=== PATIENT | female | born 1965 | race Caucasian/White ===

== ENCOUNTER 2021-10-09 08:08 | Outpatient (RCR) | payer BC, SELFPAY ==
[2021-10-09 08:49] LABS: Basophils Absolute Auto 0.02 K/uL (0.00-0.30); Basophils Percent Auto 0.4 % (0.0-3.0); Eosinophils Percent Auto 8.3 % (0.0-7.0); Hematocrit 43.8 % (33.0-51.0); Hemoglobin* 14.4 gm/dL (12.0-16.0); Lymphocytes Absolute Auto 1.14 K/uL (0.90-2.90); Lymphocytes Percent Auto 23.7 % (20-44); Mean Corpuscular HGB Conc 33 gm/dL (32-36); Mean Corpuscular Hemoglobin 31 pg (26-34); Mean Corpuscular Volume 93 fL (80-100); Monocytes Percent Auto 8.7 % (0.0-11.0); Neutrophils Absolute Auto 2.83 K/uL (1.7-7.0); Neutrophils Percent Auto 58.9 % (42.0-72.0); Platelet Count* 238 K/uL (140-440); Red Blood Count 4.71 m/uL (4.00-5.20); White Blood Count* 4.81 K/uL (4.50-11.00)
[2021-10-09 08:51] LABS: Slide Review Reflex No
[2021-10-09 09:13] LABS: Iron* 135 ug/dL (37-170)
[2021-10-09 09:22] LABS: Percent Iron Saturation 44 % (20-50); Total Iron Binding Capacity 309 ug/dL (265-497)
== END 2022-04-07 23:59 | disposition home or self-care (01) ==
LOC: CCIC 08:08
PROVIDERS: PCP Family Medicine; Visit Provider Internal Medicine Hematology & Oncology
DX: D50.9 Iron deficiency anemia, unspecified (principal)
CPT/HCPCS: 36415; 83540; 83550; 85025; 99212; 99213

== ENCOUNTER 2023-03-17 08:32 | Emergency (ER) | payer BC, SELFPAY ==
[2023-03-17 08:38] VITALS: BP 142/83; PULSE 92; RESP 18; TEMP 36.2; O2SAT 95
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
--- NOTE | 2023-03-17 08:56 | CRLHL7_ITS ---
For Patients: As a result of the Cures Act, medical imaging exams and procedure reports are released immediately into your electronic medical record. You may view this report before your referring provider. If you have questions, please contact your health care provider. INDICATION: Fall, right rib pain COMPARISON: 06/27/2020 TECHNIQUE: x views right ribs. FINDINGS: Healing nondisplaced right 8th anterolateral rib fracture. No other fracture definitely seen. Other osseous structures in the field of view appear normal. Normal bone mineralization. No focal bone lesion. The lungs are well expanded and clear. No pneumothorax or pleural effusion seen. Surgical clips right upper quadrant. IMPRESSION: Healing nondisplaced right anterolateral 8th rib fracture. Dictated by Capri Almanza MD @ 03/17/2023 9:36:30 AM (Electronically Signed)
--- NOTE | 2023-03-17 08:57 | CRLHL7_ITS ---
For Patients: As a result of the Century Cures Act, medical imaging exams and procedure reports are released immediately into your electronic medical record. You may view this report before your referring provider. If you have questions, please contact your health care provider. INDICATION: Injury COMPARISON: None TECHNIQUE: CT examination of the head was performed as axial sections without intravenous contrast. Images were obtained from the vertex of the skull through the skull base. Please note that all CT scans at this facility use dose modulation, iterative reconstruction, and/or weight-based dosing when appropriate to reduce radiation dose to as low as reasonably achievable. FINDINGS: The brain shows no sign of mass lesion, mass effect, hemorrhage, or edema. The ventricles and sulci are normal in appearance for the patient`s age. The visualized portions of the orbits are normal in appearance. The osseous structures are normal in their appearance with no sign of abnormality in the skull base or calvarium. IMPRESSION: No acute intracranial posttraumatic findings Please note that all CT scans at this facility use dose modulation, iterative reconstruction, and/or weight-based dosing when appropriate to reduce radiation dose to as low as reasonably achievable. Dictated by Jag Cast MD @ 03/17/2023 9:18:59 AM (Electronically Signed)
== END 2023-03-17 10:23 | disposition home or self-care (01) ==
PROVIDERS: Emergency Provider Family Medicine; PCP Family Medicine
DX: S06.0X0A Concussion without loss of consciousness, initial encounter (principal); S20.219A Contusion of unspecified front wall of thorax, initial encounter; W17.89XA Other fall from one level to another, initial encounter
CPT/HCPCS: 70450; 71101; 99284

== ENCOUNTER 2023-06-06 11:15 | Outpatient (RCR) | payer BC, SELFPAY ==
--- NOTE | 2023-04-13 14:42 | PT.OPEX ---
PT [facility]udd Outpatient Eval PT [facility] Outpatient Eval Start: 04/13/23 10:10 Freq: Status: Active Protocol: Document 04/13/23 10:10 [place] (Rec: 04/13/23 14:42 [facility] [id number]) E-signed By Rochelle Roth PT Physical Therapy Outpatient Evaluation Insurance Information Insurance Name [employer] Subjective Subjective PATIENT DESCRIBES FALLING AT WORK (03/16/23) FROM SCAFFOLD HITTING THE BACK OF HER HEAD W /O LOSS OF CONSCIOUSNESS. SHE DOES NOT REMEMBER THE EXACT FALL AND KNOWS THAT HER PANTS CAUGHT ON SOMETHING SHE FELL WHICH DECREASED THE FORCE THAT HER HEAD STRUCK THE GROUND. INITIALLY, SHE EXPERIENCED NAUSEA, VERTIGO, SOB, NECK PAIN AND C/O ONGOING SENSITIVITY TO LIGHT, LOUD NOISES ALONG WITH STRAIN OF HER EYES TRYING TO CONCENTRATE ON THE COMPUTER SCREEN AND TV SCREEN, HEADACHE, AND BRAIN FOG. SHE HAS BEEN WORKING HER SPIROMETER FOR IMPROVED LUNG CAPACITY AND FEELS HER PNA IS TRYING TO COME BACK. AGGRAVATING FACTORS: FLORESCENT LIGHT, LOUD NOISES, MULTIPLE STIMULI TO PROCESS, QUICK HORIZONTAL HEAD MVMT, DRIVING ALLEVIATING FACTORS: REST, STOPPING ACTIVITY, TYLENOL/ IBUPROFEN Pain Comments 06/07 POSTERIOR CRANIUM Date of Last Physician Visit 03/22/23 Current Work Status Light Duty Occupation [employer] EM[employer]OY[employer] Preferred Name HOLA Precautions Treatment Precautions/Contraindications XRAYS REVEALED FRACTURE RIB ON RIGHT Objective Other/Pertinent Objective OBJECTIVE Cervical AROM: CERVICAL ROTATION R -25%, L-25 % CERVICAL EXT -50% CERVICAL FLEX -25% [employer] test Modified vertebral artery test : (-) Coordination testing (finger to nose): OVERSHOOT RIGHT FINGER Cover-Uncover eye test:(_) H-test: *if positive positive for [employer] lesion: LEFT EYE LAG MOVING LEFT TO RIGHT, SQUINT WHEN IN HIGH R/L H Saccades: LEFT EYE LAG MOVING LEFT TO RIGHT Head thrust test (for VOR and prolonged episodes of vertigo/ dizziness): LEFT EYE LAG OTHERWISE UNREMARKABLE Gait and Balance: Gait:DELIBERATE BUT NOT UNSTEADY Modified CTSIB- Clinical Test of Sensory Interaction and Balance - need 30 seconds Romberg eyes open firm surface : 30 Romberg eyes closed firm surface: 30 Romberg eyes open foam surface : NT Romberg eyes closed foam surface:NT Single leg stance e/o: NT Neuro/Tone/Sensation/Reflexes Sensation: WNL Kika Hallpike (post canal): UNREMARKABLE Horizontal roll test ( horizontal canal): UNREMARKABLE VOR cancellation standing firm surface: (+) OBJECTIVE MEASURE Functional Test Performed and Score Dizziness Handicap Index DHI: 70 (SEVERE HANDICAP) Assessment Assessment/Impression PATIENT IS [address] HEATH FELIX TO EVAL AND TX CONCUSSION W/O LOC, NECK PAIN, AND RIGHT CHEST RIB FX; PMHX INCLUDES BUT LIMITED TO RECENT PNA, BILATERAL PE, ANEMIA. 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 SHE HAS RESIDUAL TENDERNESS ABOUT THE POSTERIOR CRANIUM WITH DECREASED CERVICAL ROM, C /O PHOTOPHOBIA, VERTIGO, SENSITIVITY TO NOISE, SLEEP DISTURBANCE, HYPERSENSITIVITY TO A FEAR OF FALLING, AND AMNESIA REGARDING THE DETAILS OF THE ACTUAL FALL. FROM THE ASSESSMENT, SHE HAS A CONSISTENT LEFT EYE LAG WHEN TRACKING, DURING SACCADES, AND VOR TESTING THAT MAY HAVE EXISTED PRIOR TO THE FALL. SHE DEMONSTRATED DIZZINESS WITH HEAD ROTATION FROM RIGHT TO LEFT DURING THE TESTING BUT NEGATIVE FOR BPPV. PATIENT HAS SIGNIFICANT CERVICAL PARASPINAL TIGHTNESS AND HYPERTONICITY SPECIFICALLY SPLENIUS CAPITIS AND LEVATOR SCAP WHICH ARE CONSISTENT WITH CERVICOGENIC HEADACHES RELATED TO THE TRAUMA OF THE FALL. SHE HAS SIGNS AND SYMPTOMS CONSISTENT WITH POST CONCUSSION SYNDROME, NECK STRAIN, AND SENSORY DISORGANIZATION. SHE WAS UNABLE TO RELAX ENOUGH TO ASSESS THE ARTHROKINEMATICS OF THE CERVICAL FACETS AND GENERAL MOBILITY BUT RESPONDED WELL TO SOR. SHE WOULD BENEFIT FROM SKILLED PHYSICAL THERAPY TO ADDRESS THE PROBLEM LIST ABOVE AND PROVIDED HER INITIAL HEP TODAY FOR CERVICAL ROM AND VOR TRAINING. SHE VERBALIZED UNDERSTANDING OF ALL SKILLED INSTRUCTIONS AND AGREEABLE TO POC AND FREQ. Primary Functional Limitations DIZZINESS SENSORY DISORGANIZATION HEADACHE NECK PAIN REACHING LIFTING Plan of Care Rehabilitation Potential Good Physical Therapy Goals 1. PATIENT WILL BE EDUCATED ON POSTURE, BODY MECHANICS AND THE IMPORTANCE OF EA IN THE NEXT 2-3 WEEKS IN ORDER TO DECREASE STRESS TO THE JOINT/ MM AND TO DECREASE HER SYMPTOMS. 2. PATIENT WILL REPORT RESOLUTION OF DIZZINESS WITH ALL HEAD MVMTS AND POSITIONAL CHANGES FOR >5 CONSECUTIVE DAYS TO IMPROVE SAFETY DURING DAILY/ WORK ACTIVITIES. 3. PATIENT WILL DECREASE HER PAIN IN THE NEXT 4-6 WEEKS WE PROGRESS HER PHYSICAL THERAPY WELL DURING DAILY ACTIVITIES. 4. PATIENT WILL REPORT IMPROVEMENT FROM 70 TO 50 ON THE DIZZINESS HANDICAP INVENTORY QUESTIONNAIRE TO SIGNIFICANTLY IMPROVE TOLERANCE TO ADL'S/WORK/LEISURE ACTIVITIES. 5. PATIENT WILL BE INDEPENDENT WITH HER HEP WITHIN 6-8 WEEKS FOR PROGRESSION OF THE ABOVE GOALS, ONGOING SELF MGMT OF PAIN/SX, ONGOING, SELF IMPROVEMENTS IN ROM, POSTURE, AND RETURN TO BASELINE WITH DAILY ACTIVITIES, PEER/FAMILY CENTERED ACTIVITIES WITHOUT FLARE UPS OF SYMPTOMS/PAIN. Coordination/Communication With Referral Source,Employer Treatment Plan/Direct Interventions Electrical Stimulation,Heat, Ice/Cold/Vasopneumatic,Joint Mobilization,Manual Therapy, Neuromuscular Re-ed,Self-Care/ Home Management,Therapeutic Activities,Therapeutic Exercises Frequency/Duration 1W8 Patient Will Be Discharged From Therapy Completion of LTG(s), Independently Progressing Evaluation Billing Untimed Code Treatment Minutes 20 PT Eval No Charge No Complexity Moderate Certification Information Physician Comment/Change : Physician NPI Number #
== END 2023-10-04 23:59 | disposition home or self-care (01) ==
PROVIDERS: PCP Family Medicine; Visit Provider Student in an Organized Health Care Education/Training Program
DX: S06.0X0A Concussion without loss of consciousness, initial encounter (principal); S22.31XA Fracture of one rib, right side, initial encounter for closed fracture; Z51.89 Encounter for other specified aftercare
CPT/HCPCS: 97110; 97140; 97162

== ENCOUNTER 2024-12-25 18:17 | Emergency (ER) | payer BC, SELFPAY ==
--- OUTSIDE RECORDS SUMMARY | 2024-12-25 18:19 | XMS_ITS | Data Portability ---
Author Organization [facility] Address [address] [place] [address] Assessment No assessment recorded. Plan of Treatment Reminders Order Date Submit Date Provider Last Modified By Organization Details Last Modified Time Details Appointments None record ed. Lab None record ed. Referral None record ed. Procedures None record ed. Surgeries None record ed. Imaging None record ed. Medication Orders None record ed. Patient TargetsNo targets recorded. Patient Instructions Encounter Date Encounter Id Patient Instructions Last Modified By Organization Details Last Modified Time 06/27/2023 [id number] Patient was instructed on best sleeping positions and to avoid sleeping on stomach. Use ice as necessary. [email or web address] Not available 06/27/2023 23:58:16 Reason for Referral None Reported. Procedures Surgical History Date Name Laterality Status Provider Name and Address Organization Details Recorded Time 4 69579: New patient E/M completed [facility] [place] [address], [place], [address], [facility] 06/27/2023 23:56:35 4 46628: Spinal manipulation , 1 to 2 regions completed NO [place], [place] [address], [place], [address], [facility] [employer] [facility] 06/27/2023 23:56:15 Imaging Results None recorded. Procedure Notes None recorded. Medical Equipment None Reported. Medications Name Sig Start Date Stop Date Status Note LastModified by Organization Details LastModified Time meclizine 12.5 mg tablet TAKE 1 TABLET (12.5 MG) BY MOUTH 3 TIMES DAILY IF NEEDED FOR VERTIGO OR NAUSEA/VOM ITING. active Not Available Not Available No t Available doxycycline hyclate 100 mg tablet TAKE 1 TABLET (100 MG) BY MOUTH TWO TIMES DAILY FOR 5 DAYS. IF YOU CONTINUE TO HAVE CHILLS OR SHORTNESS OF BREATH, CONTINUE FOR 5 MORE DAYS active Not Available Not Available No t Available Vitals None Recorded Social History None recorded. Functional Status None recorded. Mental Status None recorded. Family History Nothing Reported. Medical History No medical history recorded. Gynecological HistoryNo gynecological history recorded. Obstetrics History GPAL:G 0 P 0 0 0 0 Past Encounters Encounter ID Performer Location Encounter Start Date Encounter Closed Date Diagnosis/Indication Diagnosis SNOMED-CT Code Diagnosis ICD10 Code Diagnosis IMO Codes Diagnosis Note [id number], [place] IPN - [place] [address] [place] [id number] 06/27/2023 17:06:34 06/28/2023 00:00:23 Cervical segmental dysfunction 464471198 M99.01 Thoracic s egmental dysfunction 262753196 M99.02 Cervicogenic headache 27 7030693 G44.86 Neck pain 03032908 M54.2 Health Concerns Section Related Observation LastModified by Organization Detai ls LastModified Time None Recorded Concern Status LastModified by Organization Details LastModified Time None Recorded Advance Directives Directive None Recorded Payers Insurance Date Sequence Insurance Name Policy Number Policy Page Covered Member ID Page Member ID Guarantor Name 06/29/2023 1 [facility] [id number] Dinah Florentino [id number] Dinah Florentino Notes Date Note Type Note Provider Name and Address Organization Details Recorded Time 06/27/2023 text/html On she fell off scaffolding while painting at her son's house. She landed on her back and left side, hitting both the left and right side of her head. The next morning she went to the ED due to worsening nausea, dizziness, and vomiting. CT scan was normal but xray on 03/22/23 showed rib fracture.She complains of right more than left neck pain radiating to the base of her skull with clicking/popping when she moves her head. She has done PT and vision therapy with some relief. She notes that stress, laying in bed, sleep, and moving her head causes increased symptoms. She does get relief with relaxing, ice, ibuprofen, stretching, and PT. She rates her current pain at 4/10 VAS describing it as a dull, stiff, ache which is activity dependent. She typically wakes with pain and notes that it is worse by the end of her work day. She reports mild headaches related to this injury. Initially she also had migraines which have improved. 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 [place], [place] [address] [address], [place], [address], [facility] 06/28/2023 00:00:16 OBGyn Episode No OBEpisode recorded.
--- OUTSIDE RECORDS SUMMARY | 2024-12-25 18:19 | XMS_ITS | Clinical Summary ---
Author Organization [email or web address] Address [address] [place] [id number] Care Team Providers Care Internal Investigator Name Role Phone Valeri Valle MD Primary Care Provider [phone] Allergies Active Allergy Reactions Criticality Noted Date Comments Pollen Extracts Runny Nose 12/06/2024 Itchy throat, phlegm production Medications aspirin (ECOTRIN) 81 mg enteric coated tablet Take 1 Tablet (81 mg) by mouth once daily with a meal. 100 Tablet 3 1 Active ibuprofen (ADVIL; MOTRIN) 600 mg tabletIndicatio ns:Acute pain of left shoulder Take 1 Tablet (600 mg) by mouth two times daily. Maximum of 3200 mg in 24 hours. 30 Tablet 1 5 Active estradioL (ESTRACE) 0.01% (0.1 mg/g) vaginal cream USE NIGHTLY FOR TWO WEEKS, THEN TWICE WEEKLY. MAY APPLY WITH FINGERTIP. 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 Post concussion syndrome 04/20/2023 Sleep disturbance 04/20/2023 Abnormal uterine bleeding (AUB) 03/15/2022 Menorrhagia 03/15/2022 Status post laparoscopic hysterectomy 03/15/2022 Uterine fibroid 03/15/2022 Pulmonary embolism, bilateral 05/15/2020 Microcytic anemia 05/15/2020 History of heavy vaginal bleeding 05/15/2020 Routine general medical exam ination at a health care facility 01/29/2014 Overview (01/07/2017): Colonoscopy 12/2016 normal repeat in 10 years Encounters Date Type Department Care Team Description 12/25/2024 Nurse Triage [facility] [address] [place] [address] Valeri Valle MD Shoulder Pain/problem 12/06/2024 4:30 PM CDT Office Visit [facility] [address] [place] [address] Radha Pleitez NP Shoulder Pain/problem (Patient states she's had left shoulder pain for the past month, worse at night. States the pain is constant but worse when moving her arm. Has taken Tylenol as needed for the pain, has not helped.) 12/06/2024 Travel from Last 3 Months Immunizations Immunization Administration Dates Next Due Hepatitis A (Adult) 03/14/2007,04/29/2006 Hepatitis B (Adult) 01/26/2000,08/25/1999,1999 Influenza Virus, Unspecified 11/18/2015 Influenza, IIV3 (Age >=3 years) 11/09/2011,11/10,04/27/2006 Influenza, IIV4 11/18/2020,11/07/2012 Influenza, IIV4 (=>6mos) MDV 12/11/2019, 12/12/2018,11/16/2016,2015 MMR 06/18/2016 Td (Age >=7 Years) 04/29/2006,05/04/1996 Td, Preservative Free (age > = 7 Years) 04/29/2006 Tdap 01/29/2014 Typhoid (injectable) 04/29/2006 Family History Medical History Relation Name Comments Diabetes Brother Cancer-breast Maternal Aunt Hypertension Mother Cancer-breast Paternal Aunt x 2 Other Sister brain tumor Cancer-colon No Family History Cancer-ovarian No Family History Relation Name Status Comments Brother Father (Age 30s) suicide Maternal Aunt Mother Alive Paternal Aunt Sister Social History Tobacco Use Types Packs/Day Years Used Date Smoking Tobacco: Never Smokeless Tobacco: Never Tobacco Cessation:Counseling Given: Yes Alcohol Use Standard Drinks/Week Comments Yes 0 (1 standard drink = 0.6 oz pur e alcohol) occassionally PHQ-2 Answer Date Recorded PHQ-2 TOTAL SCORE 0 11/01/2023 Social Connections Answer Date Recorded Do you often feel lonely or isolated from those around you? 0 03/24/2023 Alcohol Use Answer Date Recorded How often do you have a drink containing alcohol ? 2 12/06/2024 How many drinks containing a lcohol do you have on a typical day when you are drinking? 0 12/06/2024 How often do you have five or more drinks on one occasion? 0 12/06/2024 Financial Resource Strain Answer Date R ecorded Difficulty of Paying Living Expenses 3 03/24/2023 Difficulty of Paying Living Expenses Not on file 03/24/2023 Food Insecurity Answer Date Recorded Do you worry your food will run out before you are able to buy more? 1 03/24/2023 Transportation Needs Answer Date Record ed Does lack of transportation keep you from medica l appointments? 1 03/24/2023 Does lack of transportation keep you from work, meetings or getting things that you need? 1 03/24/2023 Housing Stability Answer Date Recorded What is your housing situation today? 1 03/24/2023 Utilities Answer Date Recorded Do you have trouble paying f or utilities (for example, heat, electricity, water, phone)? 1 03/24/2023 Comments No Sex and Gender Information Value Date Recorded Sex Assigned at Not on file Legal Sex Female 6:19 AM [employer] Gender Identity Not on file Sexual Orientation Not on file Obstetrics History Para Term AB IAB SAB Ectopic Multiple Livin g Live Births 2 2 2 2 Date Outcome GA Total Labor Labor/2nd/3rd Weight Sex Type Anes PTL Juliana A1 A5 Name Clin Term Term Last Filed Vital Signs Vital Sign Reading Time Taken Comments Blood Pressure 138/88 12/06/2024 4:32 PM CDT Pulse 80 12/06/2024 4:28 PM CDT Temperature 36.3 C (97.4 F) 11/18/2020 2:03 PM CDT Respiratory Rate 14 06/01/2022 2:10 PM CDT Oxygen Saturation 98% 12/06/2024 4:28 PM CDT Inhaled Oxygen Concentration - - Weight 78.9 kg (173 lb 14.4 oz) 12/06/2024 4:28 PM CDT Height 162.9 cm (5' 4.13) 11/01/2023 1 1:26 AM CDT Body Mass Index 29.73 11/01/2023 11:26 AM CDT Plan of Treatment Health Maintenance Due Date Last Done Comments HIV for age 15-65 11/15/1979 Hepatitis C screening for ag e 18-79 1982 Pneumococcal series for age 50+ (1 of 1 - PCV) 2014 Zoster (shingles) series for age 50+ (1 of 2) 2014 Tetanus booster 01/30/2024 01/29/2014, 03/2006, 04/29/2006, Additional history exists Influenza Vaccine (#1) 2024 , 12/11/2019, 12/12/2018, Additional history exists BMI (ht and wt on same day) for age 18+ 10/31/2024 11/01/2023, 03/15/2022, 06/12/2021, Additional history exists Depression screening for age 12+ 10/31/2024 11/01/2023, 11/24/2020, 11/20/2020, Additional history exists Mammogram for age 45-75 03/29/2025 03/29/19, 02/23/2023, 12/17/2020, Additional history exists Lipids for age 45-75 10/31/2028 11/01/2023, 05/24/2016, 04/24/2014 Colonoscopy through age 75 06/01/203206/01, 06/01/2022, 06/01/2022, Additional history exists RSV vaccine for adults or (1 - 1-dose 75+ series) 11/15/2039 Hepatitis B series for 19+ Completed 01/25, 08/25/1999, 06/30/1999 Procedures Procedure Name Priority Date/Time Associated Diagnosis Comments XR MAMMO BRIANNE BILAT SCREEN Routine 03/29/2024 4:28 PM TEXTILE [employer]ER Visit for screening mammogram LIPID PANEL W REFLEX MEASURED LDL Routine 11/01/2023 12:09 PM CDT Screening for lipid disorders COLONOSCOPY DIAGNOSTIC Routine 06/01/2022 12:36 PM CDT Iron deficiency anemia, unspecified iron deficiency anemia type from Last 3 Months or Most Recently Relevant to Health Maintenance Results * XR MAMMO BRIANNE BILAT SCREEN (03/29/2024 4:28 PM TEXTILE BR[employer]ER) Anatomical Region Laterality Modality BREASTS, Breast Left, Breast Right Bilateral Mammography Impressions 03/30/2024 12:16 PM TEXTILE BR[employer]ER There is no radiographic evidence for malignancy. Recommend annual mammograms. MAMMOGRAM ASSESSMENT: ACR 1 Negative PATIENTS: You will also receive a letter with your examination results in an easy to read format. If you have questions about your results, please contact your referring provider. Narrative 03/30/2024 12:16 PM TEXT[employer]ER For Patients: As a result of the Century Cures Act, medical imaging exams and procedure reports are released immediately into your electronic medical record. You may view this report before your referring provider. If you have questions, please contact your health care provider. XR MAMMO BRIANNE BILAT SCREEN [[id number]] CLINICAL HISTORY: This is an asymptomatic 58 y.o. patient. INDICATION FOR EXAM: Mammogram Screening. TECHNIQUE: CC & MLO views were obtained. This study was evaluated with the assistance of Computer-Aided Detection. Breast Tomosynthesis was used in interpretation. COMPARISON FILM: Yes 02/23/23 [employer] 12/17/20 [employer] FINDINGS: There are scattered areas of fibroglandular density. There are no dominant masses, suspicious micro calcifications or areas of architectural distortion. us Valeri Valle MD MAMMO Final Resul t * (ABNORMAL) LIPID PANEL W REFLEX MEASURED LDL [[id number]] (11/01/2023 12:09 PM CDT) CHOLESTEROL,TOTAL 208(H) 100 - 199 mg/dL 11/01/2023 11:30 PM CDT [facility] Comment: Cholesterol, Total Reference Ranges Desirable <200 mg/dL Borderline 200-239 mg/dL High >=240 mg/dL TRIGLYCERIDES 112 <150 mg/dL 11/01/2023 11:30 PM CDT [facility] HDL CHOLESTEROL 65 >40 mg/dL 11:30 PM CDT [facility] NON-HDL CHOLESTEROL 143 <145 mg/dl 11/01/2023 11:30 PM CDT [facility] CHOL/HDL RATIO 3.20 <4.50 11/01/2023 11:30 PM CDT [facility] LDL CHOLESTEROL 121 <=130 mg/dL 11/01/2023 11:30 PM CDT [facility] VLDL CHOLESTEROL 22 <=30 mg/dL 11/01/2023 11:30 PM CDT [facility] PROVIDER ORDERED STATUS RANDOM 11/01/2023 11:30 PM CDT [facility] Blood BLOOD SPECIMEN / Unknown Venipuncture / Unknown 11/01/2023 12:09 PM CDT 11/01/2023 12:09 PM CDT us Valeri Valle MD CHEMISTRY Final Resul t [facility] [address] [place] [address], * COLONOSCOPY (06/01/2022 12:30 PM CDT) 06/01/2022 12:3 0 PM CDT Narrative Transcriptions Trevon Rios MD - 06/01/2022 2:05 PM CDT Patient Name: Dinah Manuel Procedure Date: 06/01/2022 Gender: Female Date of : 1965 Admit Type: Outpatient Procedure: Colonoscopy Proceduralist: Trevon Rios MD , Emily Rodriguez (Nurse),Lisa Frias RN (Nurse) Referring MD: Valeri Valle Indications/Pre-Op Diagnosis: Unexplained iron deficiency anemia, Last colonoscopy: November 2016 Medications: Fentanyl 100 micrograms IV, Midazolam 3 mgIV, The level of sedation administered wasmoderate Procedure Description: The patient had risks, benefits and alternatives explained to andgave informed consent. The patient had a stable cardiopulmonary status and judged an adequate candidate for conscious sedation. The endoscope [id number] was passed through the anus andadvanced to the cecum, identified by appendiceal orifice and ileocecal valve.The colonoscopy was performed without difficulty. The patient toleratedthe procedure well. The quality of the bowel preparation was good. The ileocecal valve, appendiceal orifice, and rectum were photographed. Complications: No immediate complications. Estimated Blood Loss & Specimen: Estimated blood loss: none. Specimen collected - None Findings: The perianal and digital rectal examinations were normal. The colon (entire examined portion) was mildly redundant. The exam was otherwise without abnormality. Impressions/Post-Op Diagnosis: - Redundant colon. - The examination was otherwise normal. - No specimens collected. Recommendation: - Patient has a contact number available for emergencies. The signsand symptoms of potential delayed complications were discussed with the patient. Return to normal activities tomorrow. Written discharge instructions were provided to the patient. - Resume previous diet. - Continue present medications. - Repeat colonoscopy in 10 years for screening purposes. Moderate Sedation: A time out was performed before the procedure. Moderate (conscious) sedation was administered by the endoscopy nurse and supervised bythe endoscopist. The following parameters were monitored: oxygensaturation, heart rate, blood pressure, EKG, CO2, respiratory rate, adequacy of pulmonary ventilation and reponse to care. Please refer to the patient's medical record flowsheets and nursing notes for moderate sedation details. Total physician intraservice time was 21 minutes. Trevon Rios MD 06/01/2022 2:05:25 PM This report has been signed electronically. Note Initiated On: 06/01/2022 12:30 PM Procedure Code(s): --- Professional --- 50708, Colonoscopy, flexible; diagnostic, including collection of specimen(s) bybrushing or washing, when performed (separateprocedure) Diagnosis Code(s): --- Professional --- D50.9, Iron deficiency anemia, unspecified Q43.8, Other specified congenitalmalformations of intestine CPT copyright 2020 [employer]. All rights reserved. The codes documented in this report are preliminary and upon personalized living assistant reviewmay be revised to meet current compliance requirements. Scope In: 1:30:46 PM Scope Withdrawal Time 0 hours 9 minutes 11 seconds Scope Out: 1:49:50 PM Trevon Rios MD PROCEDURE ORD Final Res ult from Last 3 Months or Most Recently Relevant to Health Maintenance Insurance [facility] [id number] [id number] [employer] PA[employer]ER Member Subscriber Plan / Payer (Ef fective 2021-Present) Name:Dinah Manuel Relation to Subscriber:Self Name:Dinah Manuel Payer ID:Not on file Group ID:Not on file Type:Not on file Address: [address] Member Subscriber Plan / Payer (Ef fective 2012-Present) Name:Dinah Manuel Relation to Subscriber:Spouse Name:SILVER MANUEL Date of :1963 (Home) [phone] (Work) Address: [address] [place] [place] [address] Payer ID:[id number] (NAIC) Group ID:[id number] Type:Not on file Address: [address] [place] [address] Care Teams Internal Investigator Relationship Specialty Start Date End Date Val[place] [address] [address] PCP - General Family Practice 05/05/20
[2024-12-25 18:32] VITALS: BP 121/81; PULSE 67; RESP 16; TEMP 36.1; O2SAT 97; BMI 30.9
[2024-12-25 21:07] VITALS: BP 117/83; PULSE 66; RESP 16; O2SAT 95
--- NOTE | 2024-12-25 21:28 | ED.GENADULT ---
HPI - General Adult General Chief complaint: Extremity Pain/Injury, Upper Stated complaint: arm pain Time Seen by Provider: 12/25/24 21:27 History of Present Illness HPI narrative: 59-year-old female with a past medical history of history of PE, this division of the dysfunction her ears, microcytic anemia, concussion, neck pain, dysfunctional uterine bleeding, uterine fibroids. Hysterectomy in 2020. Per [facility] medical record she was seen in clinic on 12/06, almost 3 weeks ago for left shoulder and arm pain ongoing for a month at that time. At that time thought to be a repetitive use injury. Recommended NSAIDs, Tylenol, follow-up in 4-6 weeks. She called the nurse triage line today for left shoulder and arm pain. The triage line told her to present to the emergency department. History from the patient is that she has been having this pain in her left shoulder (primarily) and sometimes in her left upper arm for a couple of months. She has no known injury. 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 She typically is fairly active and walks a lot of steps every day at work. She has no known fall or injury. She has been having arm and shoulder pain. It has been present every day and been present most of the time. It tends to be worse at night when she is resting and better during the day when she is up moving around. In particular it has been keeping her up at night for the past several days or week or 2. She recalls that was she was seen by a doctor in early November and they made a plan to try rest and nonsteroidals anti-inflammatory to see if it better but it has not been getting better, it is getting worse. She called the [facility] triage line today to try to get an appointment but cup with her to the triage nurse and was for to the ER. She recalls that the triage nurse was asking or lot of questions about chest pain. We suspect that she was probably sent to the ER by the phone triage nurse because they were concerned that her left shoulder and arm pain might be an anginal equivalent. However she is pretty confidence not her heart since it is consistently worse at night when she is resting and better when she is active. She has not had any swelling or redness or bruising of her arm. No fever chills. No rash. Sometimes the pain radiates up into the ridge of her left trapezius. Not really any neck pain. No right arm pain. No chest pain. No back pain. Urination normal. No numbness or weakness in her left arm. Related Data Home Medications ?Medication ?Instructions ?Recorded ?Confirmed acetaminophen 500 mg tablet 500 mg PO Q6H PRN 10/14/21 10/14/21 aspirin 81 mg chewable tablet 81 mg PO QDAY 10/14/21 12/25/24 ibuprofen 800 mg tablet 800 mg PO Q6-8H PRN 10/14/21 12/25/24 Allergies Allergy/AdvReac Type Severity Reaction Status Date / Time No Known Drug Allergies Allergy Verified 12/25/24 18:32 [facility] Medical History Menorrhagia ?N92.0 - Excessive and frequent menstruation with regular cycle (ICD-10) Pulmonary embolism ?I26.99 - Other pulmonary embolism without acute cor pulmonale (ICD-10) Surgical History H/O bilateral salpingectomy ?Z90.79 - Acquired absence of other genital organ(s) (ICD-10) S/P laparoscopic hysterectomy ?Z90.710 - Acquired absence of both cervix and uterus (ICD-10) Social History Do you use any of these nicotine containing products: None Non-prescribed substance use: denies use Exam Narrative: Exam Narrative: Constitutional: Appears well-developed and well-nourished. Alert. Conversant. Non toxic. HENT: Head: Atraumatic. Nose: Nose normal. Mouth/Throat: Oral mucosa is clear and moist. no trismus. Pharynx normal. Tonsils symmetric. No tonsillar enlargement, erythema, or exudate. Eyes: Conjunctivae normal. EOM normal. Pupils equal, round, and reactive to light. No scleral icterus. Neck: Normal range of motion. Neck supple. No tracheal deviation present. Cardiovascular: Normal rate, regular rhythm. No gallop. No friction rub. No murmur heard. Symmetric radial artery pulses Pulmonary/Chest: Effort normal. No stridor. No respiratory distress. No wheezes. No rales. No rhonchi . No tenderness. Musculoskeletal: Normal range of motion in her neck. No point tenderness over the midline of the cervical spine or upper thoracic spine. She does have mild tenderness with palpation over the left superior trapezius. She also has tenderness with palpation of the left glenohumeral joint. No bony deformity. No point tenderness over the AC joint. No redness or warmth. No rash. She has normal active range of motion including flexion, abduction, internal rotation, external rotation of her left shoulder she notes that moving her left shoulder triggers the pain in her shoulder and arm.. Biceps and triceps are nontender. Elbow nontender. Forearm and wrist and hand are nontender. Intact light touch sensation and motor function of the axillary nerve, radial nerve, median nerve, ulnar nerve. Strong radial artery pulse. No bruising or edema. No swelling. No redness. No warmth. No palpable fluctuance. RUE: Normal range of motion. No tenderness. No deformity RLE: Normal range of motion. No edema. No tenderness. No deformity LLE: Normal range of motion. No edema. No tenderness. No deformity Lymph: No left axilla adenopathy. Neurological: Alert and oriented to person, place, and time. Normal strength. CN II-VII intact. No sensory deficit. GCS eye subscore is 4. GCS verbal subscore is 5. GCS motor subscore is 6. Normal coordination Skin: Skin is warm and dry. No rash noted. No pallor. Normal capillary refill. Psychiatric: Normal mood. Normal affect. Const: Vital Signs, click to edit/add: Vital Signs - 24 hr 12/25/24 18:32 12/25/24 21:07 12/26/24 00:13 Temperature 96.9 F L Pulse Rate 66 Pulse Rate [Pulse Oximeter] 67 78 Respiratory Rate 16 16 18 Blood Pressure 117/83 Blood Pressure [Ri ght Upper Arm] 121/81 136/105 H Pulse Oximetry 97 95 98 Oxygen Delivery Me thod Room Air Room Air Room Air Course Vital Signs Vital signs: Initial Vital Signs Temperature 96.9 F L 12/25/24 18:32 Temperature Source Temporal Artery Scan 12/25/24 18:32 Pulse Rate 67 12/25/24 18:32 Respiratory Rate 16 12/25/24 18:32 Blood Pressure 121/81 12/25/24 18:32 Blood Pressure Mean 94 12/25/24 18:32 Blood Pressure Position Sitting 12/25/24 18:32 Pulse Oximetry 97 12/25/24 18:32 Oxygen Delivery Method Room Air 12/25/24 18:32 Vital Signs Temperature 96.9 F L 12/25/24 18:32 Pulse Rate 67 12/25/24 18:32 Respiratory Rate 16 12/25/24 18:32 Blood Pressure 121/81 12/25/24 18:32 Pulse Oximetry 97 12/25/24 18:32 Oxygen Delivery Method Room Air 12/25/24 18:32 Temperature 96.9 F L 12/25/24 18:32 Pulse Rate 78 12/26/24 00:13 Respiratory Rate 18 12/26/24 00:13 Blood Pressure 136/105 H 12/26/24 00:13 Pulse Oximetry 98 12/26/24 00:13 Oxygen Delivery Method Room Air 12/26/24 00:13 Medical Decision Making MDM Narrative Medical decision making narrative: Very pleasant 5-year-old female presenting to the ER today on the advice of the triage nurse for left shoulder and arm pain. Differential for symptoms is broad. It sounds like she was probably referred to the ER by out of concern that her left shoulder and arm pain was an anginal equivalent. However based on history of more than a month of continuous pain, better or with exercise and worse at night with rest, this is highly inconsistent with unstable angina. At this point the patient and I agree that it is reasonable to hold off on any cardiac workup such as EKG, troponin, stress testing. Consider possible DVT in her left arm however she has no redness or swelling or bruising and no recent immobilization. She is not having any chest pain or shortness of breath. She does have a distant history of a PE (20-25 years ago) without a clear triggering cause. We did order an ultrasound to look for DVT today and it is normal. X-ray left shoulder shows no signs of fracture, dislocation, AC joint separation, or significant arthritis. At this point we suspect that this is probably a soft tissue injury the shoulder possibly rotator cuff. Also consider possible left C6 cervical radiculopathy as a cause for her shoulder pain. At this point no acute surgical emergency. I think she is safe for discharge and close outpatient follow-up. Would recommend follow-up with the [facility]. Patient will call in the morning for an ER follow-up visit. Sedation precautions with [place] provided. Instymeds [place]-8 tablets. Precautions for return to the ER reviewed. Imaging Data XR L shoulder: Attestation: I have reviewed the pertinent imaging results. Radiologist's impression: Impression: No evidence of an acute bony abnormality. US Venous LUE: Attestation: I have reviewed the pertinent imaging results. Radiologist's impression: IMPRESSION: No sign of deep venous thrombosis in the left upper extremity. Discharge Plan Discharge Clinical Impression: Left shoulder pain Patient Disposition: Home, Self-Care Condition: Stable Instructions: Shoulder Pain (ED) Additional Instructions: As we discussed, please follow-up with the [facility] within the next 2-3 days for recheck. To schedule an ER follow-up appointment you can call [phone] If you would rather, you could choose to see your doctors at the [facility] clinic instead. If you have worsening symptoms or any problems-for instance severe pain, trouble breathing, chest pain, high fever, redness or swelling of your shoulder, please come back to the ER right away. Use caution with prescription pain killers. They can cause dizziness, drowsiness, constipation, and can be addictive. Prescriptions: No Action acetaminophen 500 mg tablet 500 mg PO Q6H PRN Patient Comments: TAKE 2 TABLETS BY MOUTH EVERY 6 HOURS IF NEEDED FOR PAIN. MAX ACETAMINOPHEN DOSE: 4000MG IN 24 HRS. ibuprofen 800 mg tablet 800 mg PO Q6-8H PRN aspirin 81 mg tablet,chewable 81 mg PO QDAY Follow Up/Referrals: Vlaeri Valle MD [Primary Care Provider, Family Practice] Stand Alone Forms: [employer] Info Instructions
--- NOTE | 2024-12-25 22:00 | CRLHL7_ITS ---
For Patients: As a result of the Century Cures Act, medical imaging exams and procedure reports are released immediately into your electronic medical record. You may view this report before your referring provider. If you have questions, please contact your health care provider. INDICATION: Left arm pain. TECHNIQUE: Ultrasound venous duplex left upper extremity. Compression venous exam was performed using milton-scale, color Doppler, and spectral Doppler imaging. COMPARISON: None. FINDINGS: The left internal jugular, subclavian, and axillary veins are patent with normal waveforms. The brachial, basilic, and cephalic veins are fully compressible. The right internal jugular and subclavian veins are patent with normal waveforms. IMPRESSION: No sign of deep venous thrombosis in the left upper extremity. Dictated by Felipe Grayson MD @ 12/26/2024 12:28:36 AM (Electronically Signed)
--- NOTE | 2024-12-25 22:00 | CRLHL7_ITS ---
For Patients: As a result of the Cures Act, medical imaging exams and procedure reports are released immediately into your electronic medical record. You may view this report before your referring provider. If you have questions, please contact your health care provider. Indication: Left shoulder and left upper arm pain. Technique: Left shoulder 4 views. Comparison: None. Findings: Bones: Alignment is normal. No acute fracture or suspicious bone lesion. Joint spaces: Mild degenerative changes of the acromioclavicular joint. Unremarkable glenohumeral joint. Soft tissues: Unremarkable. Impression: No evidence of an acute bony abnormality. Dictated by Dave Gibson MD @ 12/25/2024 11:18:01 PM (Electronically Signed)
[2024-12-26 00:13] VITALS: BP 136/105; PULSE 78; RESP 18; O2SAT 98
== END 2024-12-26 01:11 | disposition home or self-care (01) ==
PROVIDERS: Emergency Provider Emergency Medicine; PCP Family Medicine
DX: M25.512 Pain in left shoulder (principal); M79.602 Pain in left arm; Z86.711 Personal history of pulmonary embolism
CPT/HCPCS: 73030; 93971; 99282; 99283